=== PATIENT | female | born 1965 | race Caucasian/White ===

== ENCOUNTER 2016-12-06 15:00 | Emergency (ER) | payer MEDICAID ==
[2016-12-06 15:14] VITALS: RESP 18
[2016-12-06 15:47] LABS: COLOR YELLOW; LEUKOCYTE ESTERASE,URINE TRACE (NEGATIVE); NITRITE,URINE NEGATIVE (NEGATIVE)
[2016-12-06 15:59] LABS: BACTERIA TRACE /hpf (NONE SEEN); MUCUS TRACE /lpf (NONE-1+); RBC,URINE 50-182 /hpf (0-3)
[2016-12-06 17:02] VITALS: TEMP 97.9
[2016-12-06] MEDS ORDERED: KETOROLAC 30 MG/1 ML SDV IM ONE (17:07)
[2016-12-06] MEDS ORDERED: ONDANSETRON DISINTEGRATING 4 MG TAB PO ONE (17:08)
--- NOTE | 2016-12-06 17:09 | EDPHY ---
H & P Stated Complaint: R back/flank pain radiating to groin,hx kid stones Time Seen by Provider: 12/06/16 16:59 HPI/ROS: CHIEF COMPLAINT: Flank pain HISTORY OF PRESENT ILLNESS: The patient is a 51-year-old female with a history of kidney stones who comes to the emergency department complaining of left flank pain. It began this morning around 4:00 a.m. and is now radiating to her groin. She had a CT scan done with her urologist 2 weeks ago and was told that she had 1 stone in her bladder and another 1 in her renal pelvis at that time. She thinks that she is now passing it. She has slight hematuria. No fevers. No dysuria. No rashes. She is nauseous has vomited which she states is typical of her kidney stones. REVIEW OF SYSTEMS: Constitutional: denies: chills, fever, recent illness, recent injury EENTM: denies: blurred vision, double vision, nose congestion Respiratory: denies: cough, shortness of breath Cardiac: denies: chest pain, irregular heart rate, lightheadedness, palpitations Gastrointestinal/Abdominal: denies: abdominal pain, diarrhea, nausea, vomiting, blood streaked stools Genitourinary: See HPI Musculoskeletal: denies: joint pain, muscle pain Skin: denies: lesions, rash, jaundice, bruising Neurological: denies: headache, numbness, paresthesia, tingling, dizziness, weakness Hematologic/Lymphatic: denies: blood clots, easy bleeding, easy bruising Immunologic/allergic: denies: HIV/AIDS, transplant EXAM: GENERAL: Well-appearing, well-nourished and in no acute distress. HEAD: Atraumatic, normocephalic. EYES: Pupils equal round and reactive to light, extraocular movements intact, sclera anicteric, conjunctiva are normal. ENT: TMs normal, nares patent, oropharynx clear without exudates. Moist mucous membranes. NECK: Normal range of motion, supple without lymphadenopathy or JVD. LUNGS: Breath sounds clear to auscultation bilaterally and equal. No wheezes rales or rhonchi. HEART: Regular rate and rhythm without murmurs, rubs or gallops. ABDOMEN: Soft, nontender, normoactive bowel sounds. No guarding, no rebound. No masses appreciated. BACK: No CVA tenderness, no spinal tenderness, step-offs or deformities EXTREMITIES: Normal range of motion, no pitting or edema. No clubbing or cyanosis. NEUROLOGICAL: Cranial nerves II through XII grossly intact. Normal speech, normal gait. 5/5 strength, normal movement in all extremities, normal sensation PSYCH: Normal mood, normal affect. SKIN: Warm, dry, normal turgor, no visible rashes or lesions. 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, narcotic use, anemia, - Family History Significant Family History: No pertinent family hx - Social History Smoking Status: Never smoked Alcohol Use: Sober Drug Use: None Constitutional: Initial Vital Signs Temperature (C) 36.7 C 12/06/16 15:11 Heart Rate 87 12/06/16 15:11 Respiratory Rate 18 12/06/16 15:11 Blood Pressure 134/101 H 12/06/16 15:11 O2 Sat (%) 94 12/06/16 15:11 O2 Delivery Mode Room Air Allergies/Adverse Reactions: Sulfa (Sulfonamide Antibiotics) Allergy (Intermediate, Verified 12/06/16 15:08) Hives fentanyl Allergy (Verified 12/06/16 15:08) metoclopramide HCl [From Reglan] Allergy (Verified 12/06/16 15:08) Agitation morphine Allergy (Verified 12/06/16 15:08) Headache, "Red blotches on skin" promethazine HCl [From Phenergan] Allergy (Verified 12/06/16 15:08) twitching Home Medications: Medication Instructions Recorded Losartan Potassium [Cozaar 50 mg 50 mg PO HS 02/13/16 (*)] Metoprolol Tartrate [Lopressor 50 50 mg PO BID 02/13/16 mg (*)] Potassium Cl [Klor-Con 20 meq (*)] 20 meq PO TID 02/13/16 Ondansetron Odt [Zofran Odt 4 mg 4 mg PO Q4 PRN #20 tab 12/06/16 (RX)] Tamsulosin HCl [Flomax] 0.4 mg PO DAILY #10 cap 12/06/16 Medical Decision Making ED Course/Re-evaluation: Patient states that she has an extremely hard stick and is requesting to be treated without an IV. Will treat her with IM Toradol and Zofran. She states that this has worked well for her in the past. 5:45 p.m. the patient is feeling much better. She is asking for take-home pack of Zofran and Percocet as well as a dose of Flomax. She states that she took her last dose is today. I will not give her a large prescription. We discussed our policy being and nonnarcotic emergency department. Differential Diagnosis: Partial list of the Differential diagnosis considered include but were not limited to; kidney stone, urinary tract infection and although unlikely based on the history and physical exam, I also considered diverticulitis, obstruction , ischemia. I discussed these differential diagnoses and the plan with the patient as well as the usual and expected course. The patient understands that the diagnosis is provisional and that in medicine we are not always correct and that further workup is often warranted. Usual and customary warnings were given. All of the patient's questions were answered. The patient was instructed to return to the emergency department should the symptoms at all worsen or return, otherwise to followup with the physician as we discussed. - Data Points Medications Given: Discontinued Medications Ketorolac Tromethamine (Toradol) 30 mg IM EDNOW ONE Stop: 12/06/16 17:08 Last Admin: 12/06/16 17:31 Dose: 30 mg Ondansetron HCl (Zofran Odt) 8 mg PO EDNOW ONE Stop: 12/06/16 17:09 Last Admin: 12/06/16 17:31 Dose: 8 mg Ondansetron HCl (Zofran Odt 4 Mg Prepack#2) 1 btl TAKEHOME EDNOW ONE Stop: 12/06/16 17:46 Last Admin: 12/06/16 18:00 Dose: 1 btl Oxycodone/Acetaminophen (Percocet 5/325mg Prepack#4) 1 btl TAKEHOME EDNOW ONE Stop: 12/06/16 17:46 Last Admin: 12/06/16 17:59 Dose: 1 btl Tamsulosin HCl (Flomax) 0.4 mg PO EDNOW ONE Stop: 12/06/16 17:49 Last Admin: 12/06/16 17:59 Dose: 0.4 mg Departure - Departure Disposition: Home, Routine, Self-Care Clinical Impression: Renal calculus, left Condition: Fair Instructions: Oxycodone/Acetaminophen (By mouth), Ondansetron (By mouth), Kidney Stones (ED) Referrals: ELISHA,DOCTOR [Other] - As per Instructions Prescriptions: Ondansetron Odt [Zofran Odt 4 mg (RX)] 4 mg PO Q4 PRN #20 tab PRN Reason: Nausea & Vomiting Tamsulosin HCl [Flomax] 0.4 mg PO DAILY #10 cap
[2016-12-06] MEDS ORDERED: OXYCODONE/APAP 5/325MG PREPACK#4 BTL TAKEHOME ONE (17:45)
[2016-12-06] MEDS ORDERED: ONDANSETRON 4MG PREPACK#2 BTL TAKEHOME ONE (17:45)
[2016-12-06] MEDS ORDERED: TAMSULOSIN HCL 0.4 MG CAP PO ONE (17:48)
[2016-12-06 18:01] VITALS: BP 122/64; PULSE 88; O2SAT 96
== END 2016-12-06 18:04 | disposition home or self-care (01) ==
DX: N20.0 Calculus of kidney (principal); I10 Essential (primary) hypertension; C72.0 Malignant neoplasm of spinal cord; Z85.05 Personal history of malignant neoplasm of liver; Z85.3 Personal history of malignant neoplasm of breast; Z90.49 Acquired absence of other specified parts of digestive tract
CPT/HCPCS: J1885

== ENCOUNTER 2018-01-29 07:34 | Emergency (ER) | payer SELFPAY ==
--- NOTE | 2018-01-29 08:02 | EDPHY ---
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, narcotic use, anemia, - Social History Smoking Status: Never smoked Constitutional: Initial Vital Signs Temperature (C) 36.7 C 01/29/18 07:35 Heart Rate 101 H 01/29/18 07:35 Respiratory Rate 18 01/29/18 07:35 Blood Pressure 152/116 H 01/29/18 07:35 O2 Sat (%) 97 01/29/18 07:35 O2 Delivery Mode Room Air Allergies/Adverse Reactions: Sulfa (Sulfonamide Antibiotics) Allergy (Intermediate, Verified 01/29/18 07:41) Hives fentanyl Allergy (Verified 01/29/18 07:41) metoclopramide HCl [From Reglan] Allergy (Verified 01/29/18 07:41) Agitation morphine Allergy (Verified 01/29/18 07:41) Headache, "Red blotches on skin" promethazine HCl [From Phenergan] Allergy (Verified 01/29/18 07:41) twitching Home Medications: Medication Instructions Recorded Losartan Potassium [Cozaar 50 mg 50 mg PO HS 02/13/16 (*)] Metoprolol Tartrate [Lopressor 50 50 mg PO BID 02/13/16 mg (*)] Potassium Cl [Klor-Con 20 meq (*)] 20 meq PO TID 02/13/16 Apixaban [Eliquis] 2.5 mg PO BID 01/29/18 Cephalexin [Keflex (RX)] 500 mg PO QID #40 cap 01/29/18 Ondansetron Odt [Zofran Odt 4 mg 4 mg PO Q4 PRN #10 tab 01/29/18 (RX)] oxyCODONE IR [Oxycodone Ir (*)] 5 - 10 mg PO Q6 PRN #20 tab 01/29/18 Medical Decision Making - Diagnostics Imaging Results: Imaging Impressions Abdomen/Pelvis Ultrasound 01/29/18 08:31 Impression: Nonobstructive nephrolithiasis bilaterally. No evidence for hydronephrosis. Results called and discussed with Brodie Shaikh MD on January 29, 2018 at 0933 hours. Imaging: Discussed imaging studies w/ call center receptionist Radiologist ED Course/Re-evaluation: CHIEF COMPLAINT: Right flank and groin pain HISTORY OF PRESENT ILLNESS: The patient is a 52 y/o female with a history of kidney stones and metastatic inflammatory breast cancer complaining of right flank and groin pain with dysuria that began yesterday. Symptoms feel similar to prior kidney stones on her left side. She describes the pain as radiating from her flank to groin and it feels "like you're stabbing me with an ice pick. " History of multiple abdominal surgeries. She denies fever, vomiting, diarrhea , recent trauma, recent illness. REVIEW OF SYSTEMS: A comprehensive 10 system review of systems is otherwise negative aside from elements mentioned in the history of present illness and medical decision making. PHYSICAL EXAM: HR, BP, O2 Sat, RR. Temp noted General Appearance: Alert, well hydrated, appropriate, and appears uncomfortable. Head: Atraumatic without scalp tenderness or obvious injury Eyes: Pupils equal, round, reactive to light and accommodation, EOMI, no trauma , no injection. Nose: Atraumatic, no rhinorrhea, clear. Throat: Mucus membranes moist. Neck: Supple. Respiratory: No retractions, no distress, no wheezes, and no accessory muscle use. Lungs are clear to auscultation bilaterally. Cardiovascular: Regular rate and rhythm, no murmurs, rubs, or gallops. Good capillary refill all extremities. Gastrointestinal: Abdomen is soft, nontender, non-distended, no masses, no rebound, no guarding, no peritoneal signs. Musculoskeletal: Normal active ROM of all extremities, atraumatic. Right flank tenderness. Neurological: Alert, appropriate, and interactive. Nonfocal. Skin: No rashes, good turgor, no nodules on palpation. 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 Not employed. DIAGNOSTICS/PROCEDURES/CRITICAL CARE TIME: Renal US: nonobstructing kidney stone, no hydronephrosis/hydroureter DIFFERENTIAL DIAGNOSIS: The differential diagnosis for the patient's flank pain included but was not limited to musculoskeletal causes, kidney stone, pyelonephritis, shingles, diverticulitis, appendicitis, and aortic aneurysm. MEDICAL DECISION MAKING: This is a 52 y/o female with a history of kidney stones and metastatic breast cancer who presents with a 12-hour history of right flank, right groin, and urinary symptoms. She has right flank tenderness on exam and appears uncomfortable. Plan for UA and renal US. Patient declined IV if possible due to prior PICC infection, requesting oral medications. 500mg PO Keflex, 2 tabs Sipsey , 4mg PO Zofran ordered. UA shows infection. US shows nonobstructing renal stones without hydronephrosis or hydroureter. Reassessed patient and discussed findings. She is feeling improved after medication. Plan for discharge home with Keflex, Zofran, OxyIR and standard care and follow up instructions. Return precautions discussed. She is comfortable with this plan. - Data Points Laboratory Results: 01/29/18 08:05 Urine Color YELLOW Urine Appearance HAZY Urine pH 5.0 (5.0-7.5) Ur Specific [place] 1.024 (1.002-1.030) Urine Protein 1+ H (NEGATIVE) Urine Ketones NEGATIVE (NEGATIVE) Urine Blood 3+ H (NEGATIVE) Urine Nitrate NEGATIVE (NEGATIVE) Urine Bilirubin NEGATIVE (NEGATIVE) Urine Urobilinogen NEGATIVE EU EU (0.2-1.0) Ur Leukocyte Esterase TRACE H (NEGATIVE) Urine RBC 50-182 /hpf H /hpf (0-3) Urine WBC 5-10 /hpf H /hpf (0-3) Ur Epithelial Cells 1+ /lpf /lpf (NONE-1+) Urine Bacteria TRACE /hpf H /hpf (NONE SEEN) Urine Mucus TRACE /lpf /lpf (NONE-1+) Urine Glucose NEGATIVE (NEGATIVE) Medications Given: Discontinued Medications Cephalexin HCl (Keflex) 500 mg PO EDNOW ONE PRN Reason: Protocol Stop: 01/29/18 08:33 Last Admin: 01/29/18 08:44 Dose: 500 mg Ondansetron HCl (Zofran Odt) 4 mg PO EDNOW ONE Stop: 01/29/18 08:32 Last Admin: 01/29/18 08:43 Dose: 4 mg Oxycodone/Acetaminophen (Percocet 5/325) 2 tab PO EDNOW ONE Stop: 01/29/18 08:32 Last Admin: 01/29/18 08:44 Dose: 2 tab Departure - Departure Disposition: Home, Routine, Self-Care Clinical Impression: History of kidney stones UTI (urinary tract infection) Qualifiers: Urinary tract infection type: acute cystitis Hematuria presence: without hematuria Qualified Code(s): N30.00 - Acute cystitis without hematuria Condition: Good Instructions: Cephalexin (By mouth), Oxycodone/Acetaminophen (By mouth), Ondansetron (By mouth), Urinary Tract Infection in Women (ED) Additional Instructions: 1. Take Keflex as prescribed. Be sure to complete the entire prescription even if you feel better. 2. Use Zofran as prescribed if needed for nausea. 3. Use OxyIR as prescribed as needed for severe pain. This medication can make you drowsy and constipated. Do not use prior to driving. 4. Follow up with your primary care provider for unimproved symptoms over the next 2-3 days. 5. Return to the ED for worsening of condition. Referrals: [facility],. [Clinic] - As per Instructions Finn Perez MD [[facility] Primary Care Provider] - As per Instructions Prescriptions: Cephalexin [Keflex (RX)] 500 mg PO QID #40 cap Ondansetron Odt [Zofran Odt 4 mg (RX)] 4 mg PO Q4 PRN #10 tab PRN Reason: Nausea/Vomiting, Use 1st oxyCODONE IR [Oxycodone Ir (*)] 5 - 10 mg PO Q6 PRN #20 tab PRN Reason: Pain, Severe Report Scribed for: Brodie Shaikh Report Scribed by: Althea Medina Date of Report: 01/29/18 Time of Report: 08:29
[2018-01-29] MEDS ORDERED: OXYCODONE/APAP 5/325 TAB PO ONE (08:31)
[2018-01-29] MEDS ORDERED: ONDANSETRON DISINTEGRATING 4 MG TAB PO ONE (08:31)
[2018-01-29] MEDS ORDERED: CEPHALEXIN 500 MG CAP PO ONE (08:32)
[2018-01-29 09:47] VITALS: BP 148/92
== END 2018-01-29 09:47 | disposition home or self-care (01) ==
DX: N30.00 Acute cystitis without hematuria (principal)